=== PATIENT | male | born 1940 | race Caucasian/White ===

== ENCOUNTER 2016-11-11 07:13 | Emergency (ER) | payer OTHER ==
[~2016-11-11] VITALS: Ht 180.3 cm; Wt 83.6 kg
[~2016-11-11 07:13] MED LIST: ASPI325T PO; CARV3.12 PO; CLOP75TA PO; GLIP5TAB8 PO; LEVO25TA4 PO; METF1000 PO
[2016-11-11 07:20] VITALS: BP 132/73; PULSE 58; RESP 16; TEMP 97.7; O2SAT 100
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
[2016-11-11] MEDS ORDERED: ULTR50TA5 PO (08:44)
[2016-11-11] MEDS ORDERED: CYCL1TAB29 PO (08:44)
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
== END 2016-11-11 08:50 | disposition home or self-care (01) ==
LOC: PHEFT 07:13
DX: S39.012A Strain of muscle, fascia and tendon of lower back, initial encounter (principal); F41.8 Other specified anxiety disorders; I10 Essential (primary) hypertension; E78.00 Pure hypercholesterolemia, unspecified; K74.60 Unspecified cirrhosis of liver; J44.9 Chronic obstructive pulmonary disease, unspecified; Z86.73 Personal history of transient ischemic attack (TIA), and cerebral infarction without residual deficits; I25.10 Atherosclerotic heart disease of native coronary artery without angina pectoris; E11.9 Type 2 diabetes mellitus without complications; E04.1 Nontoxic single thyroid nodule; F10.21 Alcohol dependence, in remission; Z79.01 Long term (current) use of anticoagulants; V43.32XA Unspecified car occupant injured in collision with other type car in nontraffic accident, initial encounter; Y93.9 Activity, unspecified; Y92.481 Parking lot as the place of occurrence of the external cause; Y99.9 Unspecified external cause status
CPT/HCPCS: 72100; 73502; 99283